=== PATIENT | male | born 1965 | race Caucasian/White ===

== ENCOUNTER → 2017-01-18 | Outpatient (CLI) | payer OTHER ==
[~2017-01-18] MED LIST: ASPIRIN EC81 M1 PO; ASPIRIN81 MG PO; CIPRO PO; COLACE PO; CORDARONE200 M1 PO; DIPHENOXYLATE/A1 TA1 PO; FLAGYL PO; FLEXERIL10 MG PO; FLOMAX0.4 M1 PO; HYDROCODON-ACE1 EAC9 PO; IBUPROFEN800 MG PO; IMDUR-ER30 M3 PO; IMDUR-ER30 MG PO; LASIX20 MG PO; LIPITOR20 MG PO; LORTAB 5/500 TA1 TA2 PO; MAGOX 400400 MG PO; MEGA MULTIVITA1 EACH PO; MEROPENEM500 M1 IV; MERREM500 MG IV; METOPROL PO; METOPROLOL TAR25 MG PO; METRONIDAZOLE PO; NAPROSYN500 MG PO; NORCO1 TAB 10/3 PO; PERCOCET 71 UDTAB 7. PO; PHENERGAN25 M1 PO; PLAVIX PO; PRILOSEC40 MG PO; PRINIVIL5 MG PO; TOPROL XL 50 MG50 MG PO; VITAMIN C500 M1 PO; XARELTO20 MG PO; ZOFRAN PO
--- NOTE | ~2017-01-18 | US136 ---
[facility] A Service of [facility] RADIOLOGY TEXT RESULTS PATIENT: DENY ALVAREZ LOCATION: CNIV : 63 UNIT #: [id number] AGE: [address]: José Miguel Mendes MD SEX: M ORDER DR: [id number] [facility] [address] [place], [place] [address] [id number] O MR#: [id number] Acc #: [id number] NAME: DENY ALVAREZ : 1965 SEX: M STUDY DATE/TIME: 01/18/2017 10:25 UNIT: CNIV ROOM: STUDY DESCRIPTION: U/L [facility] Study [facility] Attending Physician: José Miguel Mendes M.D. Referring Physician: José Miguel Mendes M.D. Ordering Physician: José Miguel Mendes M.D. Primary Care Physician: [facility]. MEDICAL IMAGING REPORT This report is preliminary unless electronic signature is present EXAM Ankle-brachial indices, 01/18/2017. HISTORY Claudication. FINDINGS The right brachial pressure is 119 and the left brachial pressure 101. The right dorsalis pedis pressure is 117, posterior tibial 123, and toe 110, for ankle-brachial index of 1.03. The left dorsalis pedis pressure is 104, posterior tibial 108, and toe 108, for an ankle-brachial index of 0.91. Doppler wave form analysis indicates a triphasic signal in the posterior tibial arteries bilaterally, as well as the dorsalis pedis artery on the left. The Doppler signal in the right dorsalis pedis artery is monophasic. Pulse volume recording tracings demonstrate a good amplitude signal in the ankle and digital level bilaterally. IMPRESSION Normal perfusion to both legs. Ankle-brachial index is 1.03 on the right and 0.91 on the left. Dictated by... Lokesh Valle M.D. THIS IS AN ELECTRONICALLY VERIFIED REPORT Lokesh Valle M.D. at 01/20/2017 7:41 AM [facility] A Service [facility] RADIOLOGY TEXT RESULTS PATIENT: DENY ALVAREZ LOCATION: CNIV : 63 UNIT #: [id number] AGE: [address]: José Miguel Mendes MD SEX: M ORDER DR: YARELY/candace TD: 01/18/2017 14:37 JOB #: [id number] MEDICAL IMAGING REPORT Page 1 of 1 COPY
== END | disposition home or self-care (01) ==
LOC: CNIV 10:18
DX: I73.9 Peripheral vascular disease, unspecified (principal)
CPT/HCPCS: 93922